=== PATIENT | male | born 1975 | race Caucasian/White ===

== ENCOUNTER 2020-10-27 18:02 | Emergency (ER) | payer MEDICAID ==
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
[2020-10-27] MEDS ORDERED: Lactated Ringers 1,000 ML IV ONE (18:35)
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
--- NOTE | 2020-10-27 19:17 | PCM.SN.2 ---
- Free Text/Narrative Note: 1804 called to Trama room for airway management. Assist to CT scan. Back to Trama bay. Pre O2 X 100% intubate with glide scope Mac 4 OETT size 8 visualized through vocal cords. Positive color change. Right chest sounds clear. Left chest sounds diminished. Tube secured at 23 at Teeth-lip. Chest X-ray in process. VSS. Drugs given 10mg versed, 100mg propofol, 120mg succinylcholine, 100mg propofol, and 10 mg Vecuronium. Report to Rn out of room at 1908. VSS
[2020-10-27] MEDS ORDERED: propofoL 100 ML ONE (19:19)
[2020-10-27] MEDS ORDERED: Rocuronium 50 MG/5 ML Vial ONE (19:30)
[2020-10-27] MEDS ORDERED: propofoL 100 ML IV SCH (19:30)
[2020-10-27] MEDS ORDERED: Midazolam 5 MG/ML 5 ML MDV ONE (19:30)
[2020-10-27] MEDS ORDERED: Succinylcholine 200 MG/10 ML MDV ONE (19:30)
[2020-10-27] MEDS ORDERED: Propofol 200 MG/20 ML SDV ONE (19:30)
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
--- NOTE | 2020-10-28 11:44 | CR ---
Chest: Portable supine view of the chest is obtained. Comparison: No previous study. Heart size and mediastinum are normal. Air is noted within the neck. Minimal right-sided apical pneumothorax is seen. Lungs otherwise are clear. Heart size and mediastinum are normal. Mild mediastinal air is seen within the upper chest. Impression: 1. Minimal apical pneumothorax on the right side. 2. Air within the neck as well as air descending into the upper mediastinum. 3. Lungs are clear. Diagnostic code #3
--- NOTE | 2020-10-28 11:46 | CR ---
Chest: Portable supine view of the chest was obtained. Comparison: Prior chest x-ray performed on the same day (5:55 PM). Air within the neck as well as increasing air within the mediastinum is noted. Very minimal right apical pneumothorax is seen. Lungs are clear with no acute parenchymal change. Heart size and mediastinum are normal. Endotracheal tube is now seen with tip lying at the lower level of the clavicles. Impression: 1. Satisfactory appearance of endotracheal tube. 2. Minimal right apical pneumothorax is seen which is stable. 3. Neck air and mild increased mediastinal air. Diagnostic code #3
--- NOTE | 2020-10-28 11:47 | CR ---
Chest: Portable view of the chest was obtained. Comparison: Prior chest x-ray performed earlier on the same day (6:43 PM). Left lung shows a left-sided pleural effusion with left lung atelectasis. There is shifting of the mediastinum into the left chest. This is an interval change from prior exam. Right lung is clear. Minimal right-sided apical pneumothorax is seen. Air is noted within the soft tissues of the neck and mediastinum. Endotracheal tube is seen which is at the level of the lower clavicles. Nasogastric tube is seen with tip lying within the body of the stomach. Bony structure shows nothing acute. Impression: 1. Pleural effusion and left lung atelectasis causing shifting of the mediastinum to the left side. 2. Endotracheal tube and nasogastric tube are felt to be satisfactory at this time. 3. Minimal right-sided apical pneumothorax is seen. Stable mediastinal and left neck air is seen. Diagnostic code #5 I agree with preliminary report from [facility], finalized on 10/27/20, 9:37 PM [employer]
--- NOTE | 2020-10-28 11:48 | CR ---
Chest: Portable supine view of the chest was obtained. Comparison: Prior chest x-ray performed earlier on the same day (8:29 PM) Left-sided chest tube is seen. No evidence of aerated lung within the left chest with findings suggesting of large left-sided pneumothorax. Left lung is felt to be totally ectatic. Right lung is clear. Minimal right-sided apical pneumothorax is seen. Heart size and mediastinum appear within normal limits. Subcutaneous air is seen within the neck extending into the mediastinum. Endotracheal tube is seen. Nasogastric tube is noted lying within the stomach. No definite acute rib abnormality is appreciated. Impression: 1. Left-sided chest tube with no aerated lung within the left chest believed to represent left-sided pneumothorax and complete collapse of the left lung. 2. Endotracheal tube and nasogastric tube. 3. Minimal right-sided apical pneumothorax is seen. Subcutaneous air within the neck and within the mediastinum. Diagnostic code #5
--- NOTE | 2020-10-28 11:48 | CR ---
Chest: Supine view of the chest was obtained. Comparison: Prior chest x-ray performed earlier on the same day (8:04 PM). Left-sided pneumothorax is noted. Shifting of the mediastinum into the left chest is seen compatible with volume loss of the left lung. Endotracheal tube lies above the cordell. Nasogastric tube lies within the stomach. Subcutaneous air is noted within the neck and mediastinum. Right lung is clear. Minimal right-sided apical pneumothorax is seen. Impression: 1. Left-sided pleural effusion with left lung atelectasis with shifting of the mediastinum into the left chest. 2. Stable endotracheal tube and nasogastric tube. 3. Minimal right-sided apical pneumothorax is seen. Diagnostic code #5
--- NOTE | 2020-10-28 11:49 | CT ---
CT chest Technique: Multiple axial sections through the chest were obtained. Intravenous contrast was utilized. Reconstructed coronal and sagittal images were obtained. Comparison: Prior chest x-ray on the same day (5:55 PM). Findings: Diffuse neck air is seen which is asymmetrically worse on the right side. Air is to the left side of the upper trachea extending into subcutaneous air. Air is seen within the mediastinum. Small right apical and anterior pneumothorax is seen. Air is noted within the pericardium of the anterior heart. Lungs are clear with no acute parenchymal change. Air is noted posteriorly within the mediastinum along the paraspinal region. Lungs show no acute parenchymal change. Thoracic aorta shows no aneurysm. No mediastinal or hilar adenopathy is seen. Visualized upper abdominal structures show no discrete abnormality. Impression: 1. Diffuse air within the neck descending into the mediastinum. 2. Small right apical and anterior pneumothorax. 3. Minimal air within the pericardium. 4. Lungs are clear at this time. Diagnostic code #5 I agree with preliminary report from 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
--- NOTE | 2020-10-28 11:52 | CT ---
CT neck Technique: Multiple axial sections through the neck were obtained. Intravenous contrast was utilized. Reconstructed MIP images were obtained as an angiogram study. Findings: Common carotid arteries as well as internal and proximal external carotid arteries are patent with no stenosis or occlusion. Vertebral arteries are patent with dominant left-sided vertebral artery which is patent into the basilar artery. Diffuse subcutaneous air is seen on both sides of the neck, worse on the right side. There is air being seen to the right side of the trachea within the neck which most likely represents tracheal disruption. Small apical pneumothorax is seen. Air is also noted within the mediastinum. Impression: 1. Findings suspicious for small area of tracheal disruption with air being seen outside the trachea at this level. 2. Small right apical pneumothorax is seen. 3. Diffuse air within the mediastinum and within the neck. 4. No evidence of vascular occlusion or stenosis. Diagnostic code #3 I agree with preliminary report from [facility], finalized on 10/27/20, 8:33 PM Central Standard Time
== END 2020-10-27 22:10 ==
LOC: JD.ED 18:02
DX: S11.021A Laceration without foreign body of trachea, initial encounter (principal); S11.91XA Laceration without foreign body of unspecified part of neck, initial encounter; J98.2 Interstitial emphysema; Z20.822 Contact with and (suspected) exposure to COVID-19; X99.1XXA Assault by knife, initial encounter
CPT/HCPCS: 31500; 32551; 36415; 43752; 51702; 70498; 71045; 71260; 80053; 80179; 80306; 81001; 85025; 86850; 86900; 86901; 87635; 99291; 99292; G0390; J0330; J2250; J2704; J7120; J3490; U0002

== ENCOUNTER 2020-11-24 05:14 | Emergency (ER) | payer SELFPAY ==
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
== END 2020-11-24 05:50 | disposition home or self-care (01) ==
LOC: JD.ED 05:14
DX: K94.29 Other complications of gastrostomy (principal); Z72.0 Tobacco use
CPT/HCPCS: 99282

== ENCOUNTER 2020-12-04 19:40 | Emergency (ER) | payer SELFPAY ==
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
== END 2020-12-04 21:24 | disposition home or self-care (01) ==
LOC: JD.ED 19:40
DX: K94.23 Gastrostomy malfunction (principal); Z72.0 Tobacco use
CPT/HCPCS: 99282; 99283

== ENCOUNTER 2022-03-28 05:03 | Emergency (ER) | payer MEDICAID, OTHER ==
[2022-03-28] MEDS ORDERED: Clindamycin Phosphate in D5W 900 MG in Premix Bag 1 BAG IV ONE ×2 (05:32)
[2022-03-28] MEDS ORDERED: Sodium Chloride 0.9% 10 ML Syringe FLUSH PRN (05:32)
[2022-03-28] MEDS ORDERED: HYDROmorphone 0.5 MG/0.5 ML Syringe IVPUSH ONE (06:13)
== END 2022-03-28 06:45 | disposition home or self-care (01) ==
LOC: JD.ED 05:03
DX: K04.7 Periapical abscess without sinus (principal); F17.210 Nicotine dependence, cigarettes, uncomplicated
CPT/HCPCS: 96365; 96375; 99282; J1170; J3490; 99283

== ENCOUNTER 2022-10-04 23:46 | Emergency (ER) | payer MEDICAID ==
[2022-10-05] MEDS ORDERED: Sodium Chloride 0.9% 1,000 ML IV SCH (00:15)
[2022-10-05] MEDS ORDERED: Iopamidol 612 MG/ML 100 ML Bottle IVPUSH ONE (00:23)
[2022-10-05] MEDS ORDERED: Sodium Chloride 0.9% 10 ML Syringe FLUSH ONE (00:23)
[2022-10-05] MEDS ORDERED: Sodium Chloride 0.9% 100 ML IV SCH (00:30)
== END 2022-10-05 00:53 | disposition left against medical advice (07) ==
LOC: JD.ED 23:46
DX: J02.0 Streptococcal pharyngitis (principal); I10 Essential (primary) hypertension; Z72.0 Tobacco use
CPT/HCPCS: 87651-QW; 99283; 99284

== ENCOUNTER 2022-10-10 20:58 | Emergency (ER) | payer MEDICAID ==
[2022-10-10] MEDS ORDERED: Penicillin G Benzathine 1,200,000 Units/2 ML Syringe IM ONE (21:42)
== END 2022-10-10 22:10 | disposition home or self-care (01) ==
LOC: JD.ED 20:58
DX: J02.0 Streptococcal pharyngitis (principal); I10 Essential (primary) hypertension
CPT/HCPCS: 96372; 99282; J0561; 99283

== ENCOUNTER 2023-04-19 23:38 | Emergency (ER) | payer OTHER, MEDICAID ==
[2023-04-19] MEDS ORDERED: Lidocaine 1% 10 ML MDV INJECT ONE (23:59)
[2023-04-20] MEDS ORDERED: Ibuprofen 600 MG Tab PO ONE (00:05)
[2023-04-20] MEDS ORDERED: Amoxicillin/Clavulanate K 500-125 MG Tab PO ONE (01:17)
== END 2023-04-20 01:31 | disposition home or self-care (01) ==
LOC: JD.ED 23:38
DX: S01.81XA Laceration without foreign body of other part of head, initial encounter (principal); S60.512A Abrasion of left hand, initial encounter; I10 Essential (primary) hypertension; Z79.899 Other long term (current) drug therapy; V19.9XXA Pedal cyclist (driver) (passenger) injured in unspecified traffic accident, initial encounter; Y92.410 Unspecified street and highway as the place of occurrence of the external cause
CPT/HCPCS: 12011; 99282; A9270; 12014; 99283; J3490